=== PATIENT | male | born 1980 | race Caucasian/White ===

== ENCOUNTER 2017-01-23 16:12 | Emergency (ER) | payer OTHER ==
[2017-01-23 16:17] VITALS: BP 121/70; PULSE 66; TEMP 98; BMI 41.1
[2017-01-23] MEDS ORDERED: DIPHTH,PERTUSS(ACELL),TET 0.5 ML DISP.SYRIN IM ONE (16:42)
--- NOTE | 2017-01-23 16:50 | PDOC ---
History of Present Illness - General Chief Complaint: Injury Stated Complaint: LACERATION Time Seen by Provider: 01/23/17 16:28 History Source: Patient Exam Limitations: No Limitations - History of Present Illness Initial Comments: 01/23/17 16:46 36 yr male with c/o left finger avulsion injury. no active bleeding occurred at work using tablesaw. Occurred: reports: just prior to arrival Severity: Yes: mild Lower Extremity Pain Location: left: other (middle digit) Modifying Factors: improves with: None Past History - Past Medical History Allergies/Adverse Reactions: Allergies Allergy/AdvReac Type Severity Reaction Status Date / Time No Known Allergies Allergy Verified 01/23/17 16:17 Home Medications: Ambulatory Orders NK [No Known Home Medication] 01/23/17 - Psycho/Social/Smoking Cessation Hx Suicidal Ideation: No Smoking History: Never smoked Information on smoking cessation initiated: No *Physical Exam - Vital Signs Last Vital Signs Temp Pulse Resp BP Pulse Ox 98 F 66 18 121/70 99 01/23/17 16:13 01/23/17 16:13 01/23/17 16:13 01/23/17 16:13 01/23/17 16:13 - Physical Exam General Appearance: Yes: Nourished, Appropriately Dressed HEENT: positive: EOMI, CAROL Neck: positive: Supple Respiratory/Chest: positive: Lungs Clear, Normal Breath Sounds Cardiovascular: positive: Regular Rhythm, Regular Rate Musculoskeletal: positive: Normal Inspection Extremity: positive: Normal Capillary Refill, Normal Range of Motion, Other ( left middle digit at the dip with skin avulsion threw nail, matrix intact, cuticle intact , v shaped 2cm avulsion partial thickness no bleeding ) Integumentary: positive: Normal Color, Dry, Warm Neurologic: positive: Fully Oriented, Alert, Normal Mood/Affect, Normal Response , Motor Strength 5/5 Procedures - Laceration/Wound Repair Left Distal 3rd digit Wound Length: to 2.5 cm Wound Explored: clean Wound's Depth, Shape: superficial, nail-avulsed (partial avulsion) Irrigated w/ Saline: Yes Betadine Prep: Yes Sterile Dressing Applied: Yes (xeroform, bacitracin and bulky finger cot dressing placed ) ED Treatment Course - RADIOLOGY Radiology Studies Ordered: Category Date Time Status FINGER(S) LEFT [RAD] Stat Radiology 01/23/17 16:42 Ordered Medical Decision Making - Medical Decision Making 01/23/17 16:47 cc: left middle finger avulsion injury at work on a tablesaw [place] intact, FROM of the digit no active bleeding tetanus unk will xray to r/o fracture tetanus given wound care provided 01/23/17 16:57 negative fracture old metalic FB noted pt aware of old piece of metal in his finger *DC/Admit/Observation/Transfer Diagnosis at time of Disposition: Avulsion, skin - Discharge Dispostion Disposition: HOME Condition at time of disposition: Good - Referrals Referrals: Luis Armando Santos MD [Staff Physician] - - Patient Instructions Additional Instructions: keep dry and clean remove the dressing in 3 days you can return for wound check on MondayJanuary 24 between 8a and 8pm take motrin 800mg every 6hrs for pain as needed Mantener seco y limpio Quitar el vendaje en 3 carrion Usted puede regresar para el cheque de la herida el mircoles 8 de krish entre 8a y 8pm Christian motrin 800mg cada 6 horas para el dolor segn sea necesario - Post Discharge Activity Work/School Note: Back to Work
== END 2017-01-23 17:07 | disposition home or self-care (01) ==
LOC: JERFT 16:12
PROC: 0HDQXZZ Extraction of Finger Nail, External Approach (ICD-10-PCS; principal; 2017-01-23)
PROC: 3E0234Z Introduction of Serum, Toxoid and Vaccine into Muscle, Percutaneous Approach (ICD-10-PCS; 2017-01-23)
DX: S61.313A Laceration without foreign body of left middle finger with damage to nail, initial encounter (principal); W31.2XXA Contact with powered woodworking and forming machines, initial encounter; Y93.9 Activity, unspecified; Y92.9 Unspecified place or not applicable
CPT/HCPCS: 73140-TC-LT; 90715; 99281-25